=== PATIENT | female | born 1990 | race Caucasian/White ===

== ENCOUNTER 2021-01-04 17:52 | Emergency (ER) | payer OTHER ==
[2021-01-04 18:05] VITALS: BP 115/77; PULSE 71; TEMP 98; BMI 41.5
[2021-01-04] MEDS ORDERED: IBUPROFEN 600 MG TABLET (FP) PO ONE ×2 (18:20→18:26)
[2021-01-04] MEDS ORDERED: CYCLOBENZAPRINE HCL 10 MG TABLET (FP) PO ONE (18:21)
[2021-01-04] MEDS ORDERED: CYCLOBENZAPRINE HCL 10 MG TABLET (FP) ONE (18:26)
== END 2021-01-04 18:57 | disposition home or self-care (01) ==
LOC: JERFT 17:52
DX: M62.838 Other muscle spasm (principal); S50.02XA Contusion of left elbow, initial encounter
CPT/HCPCS: 72040-TC; 73070-TC-LT-FY; 99283-25